=== PATIENT | male | born 1990 | race Caucasian/White ===

== ENCOUNTER 2021-05-06 11:05 | Emergency (ER) | payer MEDICAID ==
[2021-05-06 11:38] VITALS: BP 162/88
[2021-05-06] MEDS ORDERED: KETOROLAC 60 MG/2 ML VIAL IM STA (12:07)
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
== END 2021-05-06 12:25 | disposition home or self-care (01) ==
LOC: ED 11:05
DX: M54.5 Low back pain (principal); W10.9XXA Fall (on) (from) unspecified stairs and steps, initial encounter
CPT/HCPCS: 96372; 99283

== ENCOUNTER 2022-01-02 20:46 | Emergency (ER) | payer OTHER, MEDICAID ==
[2022-01-02 20:53] VITALS: BP 122/81
--- NOTE | 2022-01-02 21:58 | ED Physician Documentation ---
PD HPI LOWER EXT INJURY - Stated complaint Stated Complaint: LT KNEE PX - Chief complaint Chief Complaint: Trauma Ext - History obtained from History obtained from: Patient - History of Present Illness PD HPI LOW EXT INJURY LOCATION: Left, Knee Type of injury: Twist Where injury occurred: Work Timing - onset: Enter time (20:15), Today Improved by: Rest Worsened by: Moving, Palpating Associated symptoms: No: Weakness, Numbness, Tingling, Swelling, Discolored Recently seen: Not recently seen - Additional information Additional information: sudden onset left knee pain at approximately 8:15 PM tonight while walking at work and twisted the left knee. Pain is worse with weight-bearing, movement, palpation. He has had similar problems with this knee before. Review of Systems Musculoskeletal: reports: Joint pain, Joint swelling, Pain with weight bearing PD PAST MEDICAL HISTORY - Past Medical History Cardiovascular: None Respiratory: None Neuro: None Endocrine/Autoimmune: None GI: None : None HEENT: None Psych: None Musculoskeletal: None Derm: None - Past Surgical History Past Surgical History: No - Present Medications Home Medications: Ambulatory Orders Medication Instructions Recorded Confirmed No Known Home Medications 01/02/22 01/02/22 - Allergies Allergies/Adverse Reactions: Allergies Allergy/AdvReac Type Severity Reaction Status Date / Time No Known Drug Allergies Allergy Verified 01/02/22 20:54 - Social History Does the pt smoke?: No Smoking Status: Never smoker Does the pt drink ETOH?: No Does the pt have substance abuse?: Yes - Immunizations Immunizations are current?: Yes - POLST Patient has POLST: Yes PD ED PE NORMAL - Vitals Vital signs reviewed: Yes - General General: Alert and oriented X 3, No acute distress, Well developed/nourished - Derm Derm: Normal color, Warm and dry - Extremities Extremities: No deformity PD ED PE EXPANDED - Extremities Extremities: Tenderness (mild TTP left knee along medial and lateral aspects), Limited ROM (left knee (limited flexion)), Swelling (mild left knee swelling), Left knee. No: Red warm joint Results - Vitals Vitals: Oxygen O2 Source Room air - Rads (name of study) left knee xrays Radiology: Prelim report reviewed, See rad report PD MEDICAL DECISION MAKING - ED course Complexity details: reviewed results, re-evaluated patient, considered differential, d/w patient ED course: left knee xrays without definite evidence of acute injury; there are abnormalities lateral to the femoral condyle as well as adjacent to the tibial spine c/w joint bodies or sequella of previous injury/avulsion. I discussed these results with patient and he is aware of at least the abnormality adjacent to the lateral femoral condyle, unsure if he has been told of the finding at the tibial spine (I explained where this is located). He is provided crutches to minimize weight bearing and a knee immobilizer is placed. He is given ibuprofen but declines prescription analgesia. 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 Departure - Departure Disposition: Home, Self Care Clinical Impression: Left knee sprain Qualifiers: Encounter type: initial encounter Involved ligament of knee: unspecified ligament Qualified Code(s): S83.92XA - Sprain of unspecified site of left knee, initial encounter Condition: Good Instructions: ED Crutch Walking, ED Sprain Knee Forms: Activity restrictions Discharge Date/Time: 01/02/22 23:15
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
[2022-01-02] MEDS ORDERED: IBUPROFEN 600 MG TABLET PO STA (22:09)
== END 2022-01-02 23:15 | disposition home or self-care (01) ==
LOC: ED 20:46
DX: S83.92XA Sprain of unspecified site of left knee, initial encounter (principal); X50.1XXA Overexertion from prolonged static or awkward postures, initial encounter; Y93.01 Activity, walking, marching and hiking; Y99.0 Civilian activity done for income or pay
CPT/HCPCS: 73562; 99281; 99283; A9270

== ENCOUNTER 2022-01-13 14:36 | Outpatient (CLI) | payer MEDICAID | END 2022-01-13 14:37 | disposition critical access hospital (66) | LOC: EMS 14:36 | DX: R42 Dizziness and giddiness (principal); R11.2 Nausea with vomiting, unspecified | CPT/HCPCS: A0425; A0427; A0999 ==

== ENCOUNTER 2022-01-13 14:52 | Emergency (ER) | payer MEDICAID ==
[2022-01-13] MEDS ORDERED: SODIUM CHLORIDE 0.9% 1,000 ML IV STA ×2 (15:31→16:26)
[2022-01-13] MEDS ORDERED: KETOROLAC 30 MG/ML VIAL IVP STA (15:31)
[2022-01-13] MEDS ORDERED: PROMETHAZINE INJ 25 MG in SODIUM CHLORIDE 0.9% 50 ML IV STA (15:32)
[2022-01-13] MEDS ORDERED: MECLIZINE 12.5 MG TABLET PO STA (16:26)
[2022-01-13] MEDS: HYDROmorphone 0.5 MG/0.5 ML SYRINGE IVP STA ×2 (16:35→16:44)
[2022-01-13 16:36] LABS: BASOPHILS % (AUTO) 0.6 %; EOSINOPHILS % (AUTO) 0.2 %; HCT - HEMATOCRIT 46.1 % (42.0-52.0); LYMPHOCYTES # (AUTO) 0.3 10^3/uL (1.5-3.5); LYMPHOCYTES % (AUTO) 4.8 %; MEAN CORPUSCULAR HEMOGLOBIN 28.3 pg (27.0-31.0); MEAN CORPUSCULAR HGB CONC 32.5 g/dL (32.0-36.0); MONOCYTES # (AUTO) 0.7 10^3/uL (0.0-1.0); MONOCYTES % (AUTO) 10.7 %; NEUTROPHILS # (AUTO) 5.5 10^3/uL (1.5-6.6); NEUTROPHILS % (AUTO) 82.9 %; PLT - PLATELET COUNT 249 10^3/uL (130-450); WHITE BLOOD COUNT 6.6 x10^3/uL (4.8-10.8)
[2022-01-13 16:51] LABS: ALBUMIN 3.7 g/dL (3.2-5.5); ALBUMIN/GLOBULIN RATIO 1.2 (1.0-2.2); BILIRUBIN,TOTAL 0.4 mg/dL (0.2-1.0); CALCIUM 8.9 mg/dL (8.5-10.3); POTASSIUM 4.3 mmol/L (3.5-5.0); TOTAL PROTEIN 6.8 g/dL (6.7-8.2)
[2022-01-13 17:54] LABS: CORONAVIRUS 229E-RESP PCR NOT DETECTED; CORONAVIRUS HKU1-RESP PCR NOT DETECTED; CORONAVIRUS NL63-RESP PCR NOT DETECTED; CORONAVIRUS OC43-RESP PCR NOT DETECTED
[2022-01-13 17:56] LABS: B. PARAPERTUSSIS- RESP PCR PAN NOT DETECTED; B. PERTUSSIS- RESP PCR PANEL NOT DETECTED; C. PNEUMONIAE- RESP PCR PANEL NOT DETECTED; HUMAN METAPNEUMOVIRUS NOT DETECTED; INFLUENZA A- RESP PCR PANEL NOT DETECTED; INFLUENZA B - RESP PCR PANEL NOT DETECTED; M. PNEUMONIAE- RESP PCR PANEL NOT DETECTED; PARAINFLUENZA VIRUS 1 NOT DETECTED; PARAINFLUENZA VIRUS 2 NOT DETECTED; PARAINFLUENZA VIRUS 3 NOT DETECTED; PARAINFLUENZA VIRUS 4 NOT DETECTED; RHINOVIRUS/ENTEROVIRUS NOT DETECTED; RSV- RESP PCR PANEL NOT DETECTED; SARS-CoV-2 -RESP PCR PANEL DETECTED
--- NOTE | 2022-01-13 18:11 | ED Physician Documentation ---
History of Present Illness - Stated complaint Stated Complaint: DIZZY - Chief complaint Chief Complaint: Neuro - History obtained from History obtained from: Patient - Additonal information Additional information: PT comes to the ED for CC of dizziness, chills, and nausea. He has had some nasal congestion and cough, also. Sx have been present for the past 3 days. Pt denies sick contacts that he knows of. He is fairly healthy otherwise. Review of Systems Ten Systems: 10 systems reviewed and negative Constitutional: reports: Chills Eyes: reports: Reviewed and negative Ears: reports: Reviewed and negative Nose: reports: Rhinorrhea / runny nose, Congestion Throat: reports: Reviewed and negative Cardiac: reports: Reviewed and negative Respiratory: reports: Cough GI: reports: Nausea : reports: Reviewed and negative Skin: reports: Reviewed and negative Musculoskeletal: reports: Reviewed and negative Neurologic: reports: Reviewed and negative Psychiatric: reports: Reviewed and negative Endocrine: reports: Reviewed and negative Immunocompromised: reports: Reviewed and negative PD PAST MEDICAL HISTORY - Past Medical History Past Medical History: Yes Cardiovascular: None Respiratory: None Neuro: None Endocrine/Autoimmune: None GI: None : None HEENT: None Psych: None Musculoskeletal: None Derm: None - Past Surgical History Past Surgical History: No - Present Medications Home Medications: Ambulatory Orders Medication Instructions Recorded Confirmed Ondansetron Odt [Zofran] 4 mg TL Q6H PRN #10 tablet 01/13/22 - Allergies Allergies/Adverse Reactions: Allergies Allergy/AdvReac Type Severity Reaction Status Date / Time No Known Drug Allergies Allergy Verified 01/13/22 15:01 - Social History Does the pt smoke?: No Smoking Status: Never smoker Does the pt drink ETOH?: No Does the pt have substance abuse?: Yes - Immunizations Immunizations are current?: Yes - POLST Patient has POLST: Yes PD ED PE NORMAL - Vitals Vital signs reviewed: Yes - General General: Alert and oriented X 3, No acute distress, Well developed/nourished, Other (Pt appears uncomfortable and mildly ill, but in NAD.) - HEENT HEENT: Atraumatic, PERRL, EOMI, Moist mucous membranes - Neck Neck: Supple, no meningeal sign - Cardiac Cardiac: RRR, No murmur, Strong equal pulses - Respiratory Respiratory: No respiratory distress, Clear bilaterally - Abdomen Abdomen: Soft, Non tender, Non distended - Derm Derm: Normal color, Warm and dry, No rash - Extremities Extremities: No deformity, No edema - Neuro Neuro: Alert and oriented X 3 - Psych Psych: Normal mood, Normal affect Results - Vitals Vitals: Oxygen O2 Source Room air - Labs Labs: Laboratory Tests 01/13/22 01/13/22 01/13/22 16:31 16:31 16:43 WBC 6.6 RBC 5.30 Hgb 15.0 Hct 46.1 MCV 87.0 MCH 28.3 MCHC 32.5 RDW 14.0 Plt Count 249 MPV 9.0 Neut # (Auto) 5.5 Lymph # (Auto) 0.3 L [place] # (Auto) 0.7 Eos # (Auto) 0.0 Baso # (Auto) 0.0 Absolute Nucleated RBC 0.00 Nucleated RBC % 0.0 Sodium 137 Potassium 4.3 Chloride 103 Carbon Dioxide 23 Anion Gap 11.0 BUN 11 Creatinine 1.0 Estimated GFR (MDRD) 86 L Glucose 91 Calcium 8.9 Total Bilirubin 0.4 AST 22 ALT 44 Alkaline Phosphatase 65 Total Protein 6.8 Albumin 3.7 Globulin 3.1 Albumin/Globulin Ratio 1.2 Lipase 31 Nasal Adenovirus (PCR) NOT DETECTED Nasal B. parapertussis DNA (PCR) NOT DETECTED Nasal Coronavir 229E PCR NOT DETECTED Nasal Coronavir HKU1 PCR NOT DETECTED Nasal Coronavir NL63 PCR NOT DETECTED Nasal Coronavir OC43 PCR NOT DETECTED Nasal Enterovir/Rhinovir PCR NOT DETECTED Nasal Influenza B PCR NOT DETECTED Nasal Influenza A PCR NOT DETECTED Nasal Parainfluen 1 PCR NOT DETECTED Nasal Parainfluen 2 PCR NOT DETECTED Nasal Parainfluen 3 PCR NOT DETECTED Nasal Parainfluen 4 PCR NOT DETECTED Nasal RSV (PCR) NOT DETECTED Nasal B.pertussis DNA PCR NOT DETECTED Nasal C.pneumoniae (PCR) NOT DETECTED Rishi Human Metapneumo PCR NOT DETECTED Nasal M.pneumoniae (PCR) NOT DETECTED Nasal SARS-CoV-2 (PCR) DETECTED A PD MEDICAL DECISION MAKING - ED course Complexity details: reviewed results, re-evaluated patient, considered differential, d/w patient ED course: PT was treated symptomatically with IVF and Zofran. He was worked up with resp PCR and labs. He was found to be covid positive. He was instructed regarding symptomatic management at home, as well as the usual indications for return. Departure - Departure Disposition: 01 Home, Self Care Clinical Impression: COVID-19 Condition: Stable Instructions: ED Viral Syndrome, COVID-19 [facility] Prescriptions: Ondansetron Odt [Zofran] 4 mg TL Q6H PRN #10 tablet PRN Reason: Nausea / Vomiting Comments: Your labs look good. Your viral panel is positive for COVID. In most people, this causes a cold to flulike illness. A number of patients have no symptoms at all and a small number get sick enough to need hospitalization. At this point in time, you should stay home until you are feeling better. You may take Tylenol 650 mg every 4 hours or ibuprofen 600 mg every 6 hours, as needed for fever or aches. You may take the Zofran prescribed, as needed for nausea. There is no evidence of pneumonia or severe infection at this time. If you begin to feel severely short of breath, or if you develop other significant concerns, please return to the emergency department. Forms: Activity restrictions Discharge Date/Time: 01/13/22 18:28
[2022-01-13 18:18] VITALS: BP 122/79
== END 2022-01-13 18:28 | disposition home or self-care (01) ==
LOC: EDUNIT# → ED 14:52
DX: U07.1 COVID-19 (principal)
CPT/HCPCS: 36415; 80053; 83690; 85025; 87633; 93005; 96365; 96375; 99283; 99284; A9270; J1170; J7040

== ENCOUNTER 2022-05-20 16:34 | Emergency (ER) | payer OTHER, MEDICAID ==
[2022-05-20 16:57] VITALS: BP 124/92
[2022-05-20] MEDS ORDERED: IBUPROFEN 800 MG TABLET PO STA (17:07)
--- NOTE | 2022-05-20 17:08 | ED Physician Documentation ---
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 Unable to walk or bear weight. No other injuries.) Review of Systems Constitutional: reports: Reviewed and negative Eyes: reports: Reviewed and negative Ears: reports: Reviewed and negative Cardiac: reports: Reviewed and negative Respiratory: reports: Reviewed and negative PD PAST MEDICAL HISTORY - Past Medical History Cardiovascular: None Respiratory: None Neuro: None Endocrine/Autoimmune: None GI: None : None HEENT: None Psych: None Musculoskeletal: None Derm: None - Past Surgical History Past Surgical History: No - Present Medications Home Medications: Ambulatory Orders Medication Instructions Recorded Confirmed No Known Home Medications 05/20/22 05/20/22 - Allergies Allergies/Adverse Reactions: Allergies Allergy/AdvReac Type Severity Reaction Status Date / Time No Known Drug Allergies Allergy Verified 05/20/22 16:57 - Social History Does the pt smoke?: No Smoking Status: Never smoker Does the pt drink ETOH?: No Does the pt have substance abuse?: Yes - Immunizations Immunizations are current?: Yes - POLST Patient has POLST: Yes PD ED PE NORMAL - Vitals Vital signs reviewed: Yes - General General: Alert and oriented X 3, No acute distress - Back Back: No CVA TTP, No spinal TTP - Derm Derm: Normal color, Warm and dry - Extremities Extremities: Other (He has swelling and tenderness over both malleoli, the medial malleolus is more tender than the lateral. There is also mild tenderness over the proximal fifth metatarsal. No proximal fibular or knee or hip tenderness on that side.) - Neuro Neuro: Alert and oriented X 3, Normal speech Results - Vitals Vitals: Vital Signs - 24 hr 05/20/22 16:47 Temperature 36.5 C Heart Rate 110 H Respiratory 17 Rate Blood Pressure 124/92 H O2 Saturation 96 Oxygen O2 Source Room air - Rads (name of study) X-rays of the left foot and ankle are negative with the exception of soft tissue swelling Radiology: EMP read contemporaneously PD MEDICAL DECISION MAKING - ED course ED course: 32-year-old gentleman with left foot and ankle sprain, work-related [id number] completed. He declined crutches. Departure - Departure Disposition: 01 Home, Self Care Clinical Impression: Left ankle sprain Condition: Good Record reviewed to determine appropriate education?: Yes Instructions: ED Sprain Ankle W X Ray Comments: If not better in a week or 2 follow-up with your primary care physician for reevaluation, consideration for repeat radiography. Return for new or worsening symptoms. Forms: Activity restrictions
--- NOTE | 2022-05-20 17:50 | XRAY Report ---
PROCEDURE: Ankle 3 View LT INDICATIONS: Foot/ankle inj TECHNIQUE: 3 views of the ankle were acquired. COMPARISON: None FINDINGS: Bones: No acute fractures or dislocations. Ankle mortise is normally aligned. No suspicious bony l esions. Soft tissues: Soft tissue edema is seen over the lateral malleolus. No suspicious soft tissue calcifi cation. IMPRESSION: Nonspecific soft tissue edema over the lateral malleolus. No acute osseous abnormality. If there is clinical concern or persistent symptoms, additional imaging such as repeat radiographs or advanced imaging (e.g. CT, MRI) may be helpful for further evaluation. Reviewed by: Ivan Davis MD on 05/20/2022 5:49 PM PDT Approved by: Ivan Davis MD on 05/20/2022 5:49 PM PDT Station ID: [id number]
--- NOTE | 2022-05-20 17:51 | XRAY Report ---
PROCEDURE: Foot 3 View LT INDICATIONS: Foot/ankle inj TECHNIQUE: 3 views of the foot were acquired. COMPARISON: None FINDINGS: Bones: No acute fractures or dislocations. No suspicious bony lesions. Soft tissues: Soft tissue edema is seen over the lateral malleolus. IMPRESSION: No acute osseous abnormality. If there is clinical concern or persistent symptoms, additional imaging such as repeat radiographs or advanced imaging (e.g. CT, MRI) may be helpful for further evaluation. Reviewed by: Ivan Davis MD on 05/20/2022 5:49 PM PDT Approved by: Ivan Davis MD on 05/20/2022 5:49 PM PDT Station ID: [id number]
== END 2022-05-20 18:18 | disposition home or self-care (01) ==
LOC: ED 16:34
DX: S93.402A Sprain of unspecified ligament of left ankle, initial encounter (principal); W08.XXXA Fall from other furniture, initial encounter; X50.1XXA Overexertion from prolonged static or awkward postures, initial encounter; Y92.511 Restaurant or cafe as the place of occurrence of the external cause; Y99.0 Civilian activity done for income or pay
CPT/HCPCS: 1040M; 73610; 73630; 99282; 99283; A9270

== ENCOUNTER 2023-06-09 01:31 | Outpatient (CLI) | payer BC | END 2023-06-09 01:32 | disposition critical access hospital (66) | LOC: EMS 01:31 | DX: M54.50 Low back pain, unspecified (principal); W01.0XXA Fall on same level from slipping, tripping and stumbling without subsequent striking against object, initial encounter | CPT/HCPCS: A0425; A0427 ==

== ENCOUNTER 2024-03-10 07:30 | Outpatient (CLI) | payer BC | END 2024-03-10 07:45 | disposition home or self-care (01) | LOC: LAB.N 07:30 | PROVIDERS: ATTEND Physician Assistant Medical | DX: L02.412 Cutaneous abscess of left axilla (principal) | CPT/HCPCS: 87070; 87205 ==